=== PATIENT | female | born 1995 | race Caucasian/White ===

== ENCOUNTER → 2022-04-29 14:30 | Outpatient (CLI) | payer BC, SELFPAY ==
[2022-04-29 18:50] LABS: Basophils # 0.1 K/mm3 (0-0.2); Basophils % 0.9 % (0.1-2.0); Eosinophils # 0.1 K/mm3 (0.0-0.4); Eosinophils % 1.6 % (0.1-12.0); Hematocrit 43.3 % (37.0-47.0); Hemoglobin 13.8 g/dL (12.2-16.2); Lymphocytes # 2.1 K/mm3 (0.7-4.5); Lymphocytes % 25.3 % (10-50); MANUAL DIFFERENTIAL MANUAL DIFFERENTIAL (MANUAL DIFF); Mean Corpuscular HGB Conc 31.8 g/dL (31.8-35.4); Mean Corpuscular Hemoglobin 29.4 pg (27.0-31.2); Mean Corpuscular Volume 92.4 fl (81-99); Mean Platelet Volume 9.3 fl (7.4-10.4); Monocytes # 0.4 K/mm3 (0.1-1.0); Monocytes % 4.1 % (1.7-9.3); Neutrophils # 5.8 K/mm3 (1.8-7.8); Platelet Count 420 K/mm3 (142-424); Red Blood Count 4.69 M/mm3 (4.20-5.40); Red Cell Distribution Width 12.7 % (11.5-17.5); White Blood Count 8.5 K/mm3 (4.8-10.8)
[2022-04-29 18:58] LABS: Alanine Aminotransferase 19 U/L (12-78); Albumin Level 4.7 g/dl (3.5-5.0); Albumin/Globulin Ratio 2.1 (1.1-1.8); Alkaline Phosphatase 81 U/L (38-126); Anion Gap 17.6 mEq/L (5-15); Aspartate Amino Transferase 20 U/L (14-36); Bilirubin,Total 1.1 mg/dl (0.2-1.3); Blood Urea Nitrogen 12 mg/dl (7-17); Calcium 9.6 mg/dl (8.4-10.2); Carbon Dioxide 29 mmol/L (22.0-30.0); Chloride 100 mmol/L (98-107); Estimated Glomerular Filt Rate 103 ml/min (>60); GFR (African American) 124 ML/MIN (>60); Globulin 2.2 g/dL (1.3-3.2); Glucose 88 mg/dl (74-100); Potassium 4.6 mmoL/L (3.5-5.1); Sodium 142 mmol/L (136-145); Total Protein,Serum 6.9 g/dl (6.3-8.2)
[2022-04-29 19:28] LABS: Thyroid Stimulating Hormone 0.67 uIU/mL (0.465-4.68)
[2022-04-29 19:37] LABS: Eosinophils % 1 % (0-3); Lymphocytes % 28 % (10-50); Monocytes % 6 % (2-9); Neutrophils % 65 % (42-76); Platelet Estimate Normal; RBC Morphology Normal; Total Cells Counted 100
== END ==
PROVIDERS: PCP Nurse Practitioner Family; Visit Provider Nurse Practitioner Family
DX: R51.9 Headache, unspecified (principal)
CPT/HCPCS: 80053; 84443; 85007; 85014; 85018; 85048; 85049

== ENCOUNTER → 2023-03-02 23:21 | Outpatient (CLI) | payer BC, SELFPAY ==
[2023-03-02 17:02] LABS: Basophils % 0.3 % (0.1-2.0); Eosinophils # 0.1 K/mm3 (0.0-0.4); Eosinophils % 0.8 % (0.1-12.0); Hematocrit 42.9 % (37.0-47.0); Hemoglobin 14.2 g/dL (12.2-16.2); Lymphocytes # 1.4 K/mm3 (0.7-4.5); Lymphocytes % 17.7 % (10-50); Mean Corpuscular HGB Conc 33.2 g/dL (31.8-35.4); Mean Corpuscular Hemoglobin 29.5 pg (27.0-31.2); Mean Platelet Volume 9.7 fl (7.4-10.4); Monocytes # 0.3 K/mm3 (0.1-1.0); Neutrophils # 6.2 K/mm3 (1.8-7.8); Neutrophils % 77.2 % (37.0-80.0); Platelet Count 345 K/mm3 (142-424); Red Blood Count 4.82 M/mm3 (4.20-5.40); Red Cell Distribution Width 12.8 % (11.5-17.5)
[2023-03-02 17:24] LABS: Alanine Aminotransferase 19 U/L (12-78); Albumin Level 4.8 g/dl (3.5-5.0); Alkaline Phosphatase 72 U/L (38-126); Anion Gap 16.9 mEq/L (5-15); Aspartate Amino Transferase 21 U/L (14-36); Bilirubin,Total 1.2 mg/dl (0.2-1.3); Blood Urea Nitrogen 14 mg/dl (7-17); Calcium 9.7 mg/dl (8.4-10.2); Carbon Dioxide 26 mmol/L (22.0-30.0); Chloride 104 mmol/L (98-107); Chol/HDL Ratio 4.6 (1-3.5); Cholesterol 148 mg/dl (140-200); Estimated Glomerular Filt Rate 87 ml/min (>60); GFR (African American) 106 ML/MIN (>60); Globulin 2.4 g/dL (1.3-3.2); Glucose 95 mg/dl (74-100); HDL Cholesterol 32 mg/dl (40-60); Potassium 4.9 mmoL/L (3.5-5.1); Sodium 142 mmol/L (136-145); Total Protein,Serum 7.2 g/dl (6.3-8.2); Triglycerides 56 mg/dl (30-150); VLDL Cholesterol 11 mg/dL (0-40)
[2023-03-02 17:54] LABS: Thyroid Stimulating Hormone 1.23 uIU/mL (0.465-4.68)
== END ==
PROVIDERS: Physician Assistant; PCP Family Medicine; Visit Provider Family Medicine
DX: L70.9 Acne, unspecified (principal); Z83.49 Family history of other endocrine, nutritional and metabolic diseases; Z79.899 Other long term (current) drug therapy
CPT/HCPCS: 80053; 80061; 84443; 84450; 84460; 85025

== ENCOUNTER → 2023-04-13 18:39 | Outpatient (CLI) | payer BC, SELFPAY ==
[2023-04-13 19:37] LABS: Alanine Aminotransferase 22 U/L (12-78); Aspartate Amino Transferase 28 U/L (14-36); Chol/HDL Ratio 5.8 (1-3.5); Cholesterol 157 mg/dl (140-200); HDL Cholesterol 27 mg/dl (40-60); Triglycerides 107 mg/dl (30-150); VLDL Cholesterol 21 mg/dL (0-40)
[2023-04-13 19:48] LABS: Direct LDL Cholesterol 103.32 mg/dL (100-129)
== END ==
PROVIDERS: PCP Physician Assistant; Visit Provider Physician Assistant
DX: L70.0 Acne vulgaris (principal); Z79.899 Other long term (current) drug therapy; Z32.02 Encounter for pregnancy test, result negative
CPT/HCPCS: 80061; 84450; 84460

== ENCOUNTER → 2023-05-17 19:12 | Outpatient (CLI) | payer BC, SELFPAY ==
[2023-05-17 19:51] LABS: Alanine Aminotransferase 20 U/L (12-78); Aspartate Amino Transferase 27 U/L (14-36); Chol/HDL Ratio 5.7 (1-3.5); Cholesterol 166 mg/dl (140-200); HDL Cholesterol 29 mg/dl (40-60); Triglycerides 121 mg/dl (30-150); VLDL Cholesterol 24 mg/dL (0-40)
[2023-05-17 20:01] LABS: Direct LDL Cholesterol 109.77 mg/dL (100-129)
== END ==
PROVIDERS: PCP Physician Assistant; Visit Provider Physician Assistant
DX: L70.0 Acne vulgaris (principal); Z79.899 Other long term (current) drug therapy; Z32.02 Encounter for pregnancy test, result negative
CPT/HCPCS: 80061; 84450; 84460